=== PATIENT | female | born 1960 | race American Indian/Alaskan Native ===

== ENCOUNTER 2020-03-17 16:11 | Emergency (ER) | payer MEDICARE, MEDICAID ==
[~2020-03-17] VITALS: Ht 157.5 cm; Wt 70.0 kg
[~2020-03-17 16:11] MED LIST: TEG100T PO
[2020-03-17] MEDS ORDERED: BUSP5TAB3 PO (16:42)
[2020-03-17] MEDS ORDERED: FOLI1TAB24 PO (16:44)
[2020-03-17] MEDS ORDERED: DOCU100C33 PO (16:45)
[2020-03-17] MEDS ORDERED: VITA-347 PO (16:47)
[2020-03-17] MEDS ORDERED: LEVE500T PO (16:48)
[2020-03-17] MEDS ORDERED: PARO40TA PO (16:50)
--- NOTE | 2020-03-17 17:00 | NUR ---
Resting in bed
[2020-03-17 17:36] LABS: BASOPHILS % (AUTO) 0.4 % (0-1); EOSINOPHILS % (AUTO) 0.7 % (0-6); HEMATOCRIT 38.7 % (35.0-45.0); HEMOGLOBIN 13.3 g/dl (12.0-16.0); LYMPHOCYTES # (AUTO) 1.1 X10'3 (1.1-4.8); LYMPHOCYTES % (AUTO) 20.5 % (21-51); MEAN CORPUSCULAR HGB CONC 34.2 g/dL (33.0-36.5); MEAN CORPUSCULAR VOLUME 96.6 FL (78-98); MEAN PLATELET VOLUME 6.2 FL (7.4-10.4); MONOCYTES # (AUTO) 0.3 X10'3 (0-0.9); MONOCYTES % (AUTO) 5.7 % (2-12); NEUTROPHILS # (AUTO) 3.9 X10'3 (1.8-7.7); NEUTROPHILS % (AUTO) 72.7 % (42-75); PLATELET COUNT 265 X10'3 (140-440); RED BLOOD COUNT 4.01 X10'6 (4.20-5.60); RED CELL DISTRIBUTION WIDTH 12.3 % (11.5-14.5); WHITE BLOOD COUNT 5.4 X10'3 (4.5-11.0)
[2020-03-17 17:53] LABS: ALANINE AMINOTRANSFERASE 25 U/L (12-78); ALKALINE PHOSPHATASE 155 IU/L (46-116); ANION GAP 7 (8-16); ASPARTATE AMINO TRANSFERASE 23 U/L (10-37); BILIRUBIN,TOTAL 0.2 MG/DL (0.1-1.0); BLOOD UREA NITROGEN 7 MG/DL (7-18); BUN/CREATININE RATIO 11.5 (6.6-38.0); CALCIUM 8.4 MG/DL (8.5-10.1); CHLORIDE 95 MMOL/L (99-107); CREATININE 0.61 MG/DL (0.40-0.90); GLUCOSE 104 MG/DL (70-104); POTASSIUM 4.2 MMOL/L (3.5-5.1); SODIUM 131 MMOL/L (135-145); TOTAL CARBON DIOXIDE 28.9 MMOL/L (24-32); TOTAL PROTEIN 8.2 G/DL (6.4-8.2); eGFR > 90 ML/MIN
[2020-03-17 18:02] LABS: ETHANOL < 0.010 GM/DL (0.0-0.010)
--- NOTE | 2020-03-17 18:06 | NUR ---
Resting in bed
[2020-03-17 19:00] LABS: CARBAMAZEPINE (TEGRETOL) 9.7 UG/ML (4.0-12.0)
[2020-03-17] MEDS ORDERED: CARB200T2 PO (19:09)
[2020-03-17 19:50] LABS: CLARITY,URINE CLOUDY (Clear); COLOR,URINE YELLOW (Yellow); GLUCOSE, URINE NEGATIVE (Neg); KETONES,URINE NEGATIVE (Neg); LEUKOCYTE ESTERASE ,URINE MODERATE (Neg); NITRITES, URINE POSITIVE (Neg); OCCULT BLOOD,URINE MODERATE (Neg); PH,URINE 7.5 (4.8-8.0); PROTEIN,URINE NEGATIVE (Neg); UROBILINOGEN,URINE 0.2 E.U/dL (0.2-1.0)
[2020-03-17 19:51] LABS: URINE HCG NEGATIVE (NEG)
[2020-03-17 19:56] LABS: BACTERIA,URINE 4+ /HPF (Neg); RBC,URINE 0-2 /HPF (0-2); UA COLLECTION TYPE VOIDED
[2020-03-17 19:57] LABS: SQUAMOUS EPITHELIAL CELL,UR FEW /LPF (FEW)
[2020-03-17 20:03] LABS: URINE AMPHETAMINE SCREEN NEGATIVE (Neg); URINE BARBITUATE SCREEN NEGATIVE (Neg); URINE BENZODIAZEPINES SCREEN NEGATIVE (Neg); URINE CANNABINOID SCREEN NEGATIVE (Neg); URINE COCAINE SCREEN NEGATIVE (Neg); URINE METHADONE SCREEN NEGATIVE (Neg); URINE OPIATE SCREEN NEGATIVE (Neg); URINE PHENCYCLIDINE SCREEN NEGATIVE (Neg)
[2020-03-17] MEDS: levetiracetam 250mg tablet PO SCH (20:03)
[2020-03-17] MEDS: docusate sod 100mg capsule PO SCH (20:03)
[2020-03-17] MEDS: busPIRone 5mg tablet PO SCH (20:03)
[2020-03-17] MEDS: carBAMazepine Ext. Release 200 MG TAB.ER.12H PO SCH (20:11)
[2020-03-18] MEDS ORDERED: vitamin D (cholecalciferol) 1,000 unit tablet PO SCH (08:00)
[2020-03-18] MEDS ORDERED: beta-carotene(A) w/C & E + minerals tab PO SCH (08:00)
[2020-03-18] MEDS ORDERED: PARoxetine 20mg tablet PO SCH (08:00)
--- NOTE | 2020-03-18 08:02 | NUR ---
PT REQUESTING TO BE CONFIDENTIAL AND TO ONLY HAVE HER INFORMATION SHARED WITH HERMELINDO STINSON (FRIEND) AND SETH MICHELLE (BROTHER). PT DOES NOT WANT HER INFORMATION SHARED WITH STAFF OF RETIREMENT.
[2020-03-18] MEDS: carBAMazepine Ext. Release 200 MG TAB.ER.12H PO SCH (08:11)
[2020-03-18] MEDS: levetiracetam 250mg tablet PO SCH (08:11)
[2020-03-18] MEDS: busPIRone 5mg tablet PO SCH (08:12)
[2020-03-18] MEDS: docusate sod 100mg capsule PO SCH (08:12)
--- NOTE | 2020-03-18 10:48 | NUR ---
Patient on bed awake.We will monitor.
[2020-03-18] MEDS ORDERED: ALPR1TAB2 PO (14:08)
--- NOTE | 2020-03-18 14:17 | NUR ---
PT BEING D/C HOME [facility]. THEY REPORT THEIR SENIOR ENERGY TRADER ETA OF 1700.
[2020-03-18 17:25] VITALS: BP 137/94
--- NOTE | 2020-03-18 17:45 | NUR ---
DC INSTRUCTIONS GIVEN TO PATIENT AND PRISONSQUEEGEER AND FORMER, HERMELINDO. PATIENT IS STATING THAT SHE DOES NOT WANT TO GO BACK TO HER PRESENT PLACEMENT AND SHE WILL RUN AWAY. PATIENT REMINDED THAT SHE HAD AGREED WITH THE MENTAL HEALTH WORKER, TRISTON, THAT SHE WOULD BE STAYING AT PRESENT PLACEMENT UNTIL OTHER ARRANGEMENTS CAN BE MADE. PATIENT GOT DRESSED AND DEPARTED FROM UNIT, FOLLOWED BY OPTIMIZATION MANAGER. PATIENT IS IN STABLE CONDITION ON DEPARTURE FROM ER, ACCOMPANIED BY SECURITY.
== END 2020-03-18 17:58 | disposition home or self-care (01) ==
LOC: ER 16:11 → EEVIPCON 16:11 → ER 03-18 17:58
DX: R45.851 Suicidal ideations (principal); Z86.69 Personal history of other diseases of the nervous system and sense organs; Z88.0 Allergy status to penicillin; Z79.899 Other long term (current) drug therapy; Z88.8 Allergy status to other drugs, medicaments and biological substances
CPT/HCPCS: 36415; 80053; 80156; 80305; 80320; 81001; 81025; 84443; 85025; 99285

== ENCOUNTER 2020-03-22 04:48 | Emergency (ER) | payer MEDICARE, MEDICAID ==
[~2020-03-22] VITALS: Ht 157.5 cm; Wt 66.4 kg
[~2020-03-22 04:48] MED LIST changes: +ALPR1TAB2 PO; +BUSP5TAB3 PO; +CARB200T2 PO; +DOCU100C33 PO; +FOLI1TAB24 PO; +LEVE500T PO; +PARO40TA PO; -TEG100T PO; +VITA-347 PO
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
[2020-03-22 07:22] VITALS: BP 143/92
[2020-03-22] MEDS ORDERED: BUSP10TA3 PO (16:22)
[2020-03-22] MEDS ORDERED: CARB-52 PO (16:22)
== END 2020-03-22 07:28 | disposition home or self-care (01) ==
LOC: ER 04:48
DX: Z00.00 Encounter for general adult medical examination without abnormal findings (principal); F32.9 Major depressive disorder, single episode, unspecified; Z86.69 Personal history of other diseases of the nervous system and sense organs; Z90.710 Acquired absence of both cervix and uterus; Z98.890 Other specified postprocedural states; Z88.0 Allergy status to penicillin; Z88.8 Allergy status to other drugs, medicaments and biological substances; Z79.899 Other long term (current) drug therapy
CPT/HCPCS: 99284

== ENCOUNTER 2020-03-22 15:05 | Emergency (ER) | payer MEDICARE, MEDICAID ==
[~2020-03-22] VITALS: Ht 157.5 cm; Wt 70.0 kg
[2020-03-22 15:58] LABS: BASOPHILS % (AUTO) 0.3 % (0-1); EOSINOPHILS % (AUTO) 0.6 % (0-6); HEMATOCRIT 40.3 % (35.0-45.0); HEMOGLOBIN 13.9 g/dl (12.0-16.0); LYMPHOCYTES # (AUTO) 1.3 X10'3 (1.1-4.8); LYMPHOCYTES % (AUTO) 25.6 % (21-51); MEAN CORPUSCULAR HEMOGLOBIN 33.2 PG (27.0-31.0); MEAN CORPUSCULAR HGB CONC 34.5 g/dL (33.0-36.5); MEAN CORPUSCULAR VOLUME 96.2 FL (78-98); MEAN PLATELET VOLUME 6.4 FL (7.4-10.4); MONOCYTES # (AUTO) 0.5 X10'3 (0-0.9); MONOCYTES % (AUTO) 8.9 % (2-12); NEUTROPHILS # (AUTO) 3.3 X10'3 (1.8-7.7); NEUTROPHILS % (AUTO) 64.6 % (42-75); PLATELET COUNT 293 X10'3 (140-440); RED BLOOD COUNT 4.19 X10'6 (4.20-5.60); RED CELL DISTRIBUTION WIDTH 12.6 % (11.5-14.5); WHITE BLOOD COUNT 5.2 X10'3 (4.5-11.0)
[2020-03-22 16:08] LABS: ALANINE AMINOTRANSFERASE 26 U/L (12-78); ALBUMIN 4.2 G/DL (3.4-5.0); ALBUMIN/GLOBULIN RATIO 0.9 (1.1-1.5); ALKALINE PHOSPHATASE 161 IU/L (46-116); ANION GAP 5 (8-16); ASPARTATE AMINO TRANSFERASE 21 U/L (10-37); BILIRUBIN,TOTAL 0.3 MG/DL (0.1-1.0); BLOOD UREA NITROGEN 4 MG/DL (7-18); BUN/CREATININE RATIO 5.9 (6.6-38.0); CHLORIDE 98 MMOL/L (99-107); CREATININE 0.68 MG/DL (0.40-0.90); GLUCOSE 119 MG/DL (70-104); POTASSIUM 4.1 MMOL/L (3.5-5.1); SODIUM 135 MMOL/L (135-145); TOTAL CARBON DIOXIDE 32.1 MMOL/L (24-32); TOTAL PROTEIN 8.7 G/DL (6.4-8.2); eGFR 89 ML/MIN
[2020-03-22 16:21] LABS: ETHANOL < 0.010 GM/DL (0.0-0.010)
[2020-03-22] MEDS ORDERED: BUSP10TA3 PO (16:22)
[2020-03-22] MEDS ORDERED: CARB-52 PO (16:22)
--- NOTE | 2020-03-22 17:23 | NUR ---
pt ambulated to ER overflow bed 20 from main ER. calm and cooperative. apologizes for "coming here again". changed into scrubs. personal belongings inventoried. oriented to unit. urine sample obtained and sent. denies thoughts of hurting herself or others at this time.
[2020-03-22 17:36] LABS: CLARITY,URINE CLOUDY (Clear); COLOR,URINE YELLOW (Yellow); GLUCOSE, URINE NEGATIVE (Neg); KETONES,URINE NEGATIVE (Neg); LEUKOCYTE ESTERASE ,URINE MODERATE (Neg); NITRITES, URINE NEGATIVE (Neg); OCCULT BLOOD,URINE MODERATE (Neg); PROTEIN,URINE NEGATIVE (Neg); UROBILINOGEN,URINE 0.2 E.U/dL (0.2-1.0)
[2020-03-22 17:43] LABS: URINE HCG NEGATIVE (NEG)
[2020-03-22 17:48] LABS: URINE AMPHETAMINE SCREEN NEGATIVE (Neg); URINE BARBITUATE SCREEN NEGATIVE (Neg); URINE BENZODIAZEPINES SCREEN NEGATIVE (Neg); URINE CANNABINOID SCREEN NEGATIVE (Neg); URINE COCAINE SCREEN NEGATIVE (Neg); URINE METHADONE SCREEN NEGATIVE (Neg); URINE OPIATE SCREEN NEGATIVE (Neg); URINE PHENCYCLIDINE SCREEN NEGATIVE (Neg)
[2020-03-22 17:52] LABS: UA COLLECTION TYPE NON-SPECIFIED
[2020-03-22 17:56] LABS: BACTERIA,URINE 4+ /HPF (Neg); SQUAMOUS EPITHELIAL CELL,UR FEW /LPF (FEW); WBC CLUMPS,URINE FEW /HPF (NEGATIVE); WBC,URINE 30-50 /HPF (0-4)
--- NOTE | 2020-03-22 18:47 | NUR ---
PT PACKET FAXED TO [facility]
--- NOTE | 2020-03-22 19:00 | NUR ---
PT AWOKE AND SAT UP TO EAT DINNER . PLEASANT COROPORTATIVE POLITE .
--- NOTE | 2020-03-22 20:00 | NUR ---
PT SITTING UP IN BED , TALKING ABOUT SI THAT SHE HAD TODAY . STATES THAT SHE DOESNT WAN TO BE HERE AND SHE IS SORRY , BUT IT IS NOT OK FOR HER AT HER HOME . THAT SHE DOESNT GET ALONG WITH ALL THE PEOPLE WHERE SHE LIVES ADN SHE JUST CANT TAKE IT ANYMORE . PT SAYS SHE DOESNT WANT TO HURT SELF BUT DOESNT KNOW WHAT ELSE TO DO ABOUT NOT WANTING TO LIVE WHERE SHE IS AT . PT LOOKING AT THE GROUND WITH A MELONCOMY TONE
--- NOTE | 2020-03-22 21:00 | NUR ---
ENCOURAGED PT TO GET READY FOR BED . OFFERD PT A WARM BLANKET . PT GOT INTO BED AND SAID GOOD NIGHT AND THANK YOU
--- NOTE | 2020-03-22 22:04 | NUR ---
PT SLEEPING PEACFULLY RESP EVEN UNLABORED . PT IN THE DIRECT LINE OF SIGHT OF NURSING STAFF.
--- NOTE | 2020-03-22 22:04 | NUR ---
MED REC PRINTED FOR SIGNING
--- NOTE | 2020-03-22 23:02 | NUR ---
PT SLEEPING ON HER RIGHT SIDE . RESP EVEN AND UNLABORED . WILL CONTINUE TO MONITOR And REASSESS
--- NOTE | 2020-03-23 00:14 | NUR ---
PT SLEEPING ON HER RIGHT SIDE . RESP EVEN AND UNLABORED . WILL CONTINUE TO MONITOR And REASSESS
--- NOTE | 2020-03-23 00:51 | NUR ---
PT AWAKE ASKING QUESTIONS ABOUT [facility] DX AND HER CONCERNS SHE HAS ABOUT THE QUESTIONS SHE WAS ASKED IN REGARDS TO HER HAVIT "IT" PT GAVE THIS NUMBER [phone] JANETH RENE SHE STATED WILL NEED TO BE CALLED ABOUT HER CONCERNS AND HEALTH HX AND HER STUFFED PANDA . PT SAT UP IN BED AND COMBED HER HAIR . REMINDED PATIENT THAT IT WAS 01 AND THAT SHE NEEDED TO TRY AND GO BACK TO SLEEP .
--- NOTE | 2020-03-23 01:09 | NUR ---
PT APPEARS TO BE A LITTLE ANXIOUS BUSPAR ORDERED , PHARMACY TIMED FOR MEDS TO BEGAN IN AM . PHONED PHARMIST AND ASKED IF THE MEDICATION COULD BE TIMED SO THAT 03/22/20 DOSES COULD BE TAKEN PT WAS HAVING A HARD TIME SLEEPING . PHARMACY STATED [facility] TIMED THE MEDICATIONS THAT WAY AND IF THE PATIENT NEEDED HER BUSPAR NOW THAT IT WAS THE PROVIDERS WHO WOULD NEED TO TIME THE MEDICATION NOT PHARMACY . SPOKE WITH DR VALERO WHO ORDER 1 MG OF ATIVAN PO NOW X1 DOSE . PT VERBALIZED SHE WOULD LIKE TO TAKE THE ATIVAN AND SEE IF IT HELPS HER RELAX .
[2020-03-23] MEDS ORDERED: LORazepam 1 MG tablet PO ONE (01:10)
--- NOTE | 2020-03-23 02:00 | NUR ---
PT SLEEPING PEACFULLY SUPINE . RESP EVEN AND UNLABORED
--- NOTE | 2020-03-23 02:58 | NUR ---
PT MOVED BACK TO HER RIGHT SIDE SLEEPING RESP EVEN AND UNLABORED WILL CONTINUE TO MONITOR
--- NOTE | 2020-03-23 03:50 | NUR ---
PT SLEEPING PEACFULLY ON HER RIGHT SIDE RESP EVEN AND UNLABORED WILL CONTINUE TO MONITOR AND ASSESS
--- NOTE | 2020-03-23 05:41 | NUR ---
pt aursable with vs pleasant coroporates
[2020-03-23] MEDS: busPIRone 5mg tablet PO SCH ×3 (06:00→14:21)
--- NOTE | 2020-03-23 06:48 | NUR ---
Patient sleeping supine in bed. Respirations are even and unlabored.
[2020-03-23] MEDS ORDERED: docusate sod 100mg capsule PO SCH (08:00)
[2020-03-23] MEDS ORDERED: carBAMazepine Ext. Release 200 MG TAB.ER.12H PO SCH (08:00)
[2020-03-23] MEDS ORDERED: beta-carotene(A) w/C & E + minerals tab PO SCH (08:00)
[2020-03-23] MEDS ORDERED: levetiracetam 250mg tablet PO SCH (08:00)
[2020-03-23] MEDS ORDERED: vitamin D (cholecalciferol) 1,000 unit tablet PO SCH (08:00)
[2020-03-23] MEDS ORDERED: PARoxetine 20mg tablet PO SCH (08:00)
--- NOTE | 2020-03-23 08:48 | NUR ---
Patient up to void. Eating breakfast currently. Medication compliant. No needs at this time. Will continue to monitor.
--- NOTE | 2020-03-23 09:07 | NUR ---
Patient up to restroom.
--- NOTE | 2020-03-23 09:18 | NUR ---
Breaking primary RN, pt is sitting up in bed no distress observed will continue to monitor
--- NOTE | 2020-03-23 09:26 | NUR ---
Lab present to draw blood.
--- NOTE | 2020-03-23 11:26 | NUR ---
Melissa ortez in [facility] - 03/23/20 at 1129 by [email or web address] breaking primary RN, pt is sitting at side of bed, calm, awaiting taxi
--- NOTE | 2020-03-23 11:29 | NUR ---
breaking primary RN, pt is laying on her right side, awake and calm will comntinue to monitor
--- NOTE | 2020-03-23 12:56 | NUR ---
Pt. up to the bathroom. Called [facility] and they state they can pick patient up at 15:00.
[2020-03-23 14:54] VITALS: BP 125/66
--- NOTE | 2020-03-25 09:57 | NUR ---
pt. has no phone number listed. called contact (brother named amanda) the number listed is a fax # not a phone number. unable to leave a message. pt. needs to have bactrim ds 1 po bid x 7 days #14 called to a pharmacy.
== END 2020-03-23 15:01 | disposition home or self-care (01) ==
LOC: ER 15:05
DX: R62.50 Unspecified lack of expected normal physiological development in childhood (principal); R45.851 Suicidal ideations; F32.9 Major depressive disorder, single episode, unspecified; Z86.69 Personal history of other diseases of the nervous system and sense organs; Z90.710 Acquired absence of both cervix and uterus; Z98.890 Other specified postprocedural states; Z88.0 Allergy status to penicillin; Z88.8 Allergy status to other drugs, medicaments and biological substances; Z79.899 Other long term (current) drug therapy
CPT/HCPCS: 36415; 80053; 80156; 80177; 80305; 80320; 81001; 81025; 84443; 85025; 87077; 87088; 87186; 99285

== ENCOUNTER 2020-07-11 00:27 | Emergency (ER) | payer MEDICARE, MEDICAID ==
[~2020-07-11] VITALS: Ht 157.5 cm; Wt 69.0 kg
[~2020-07-11 00:27] MED LIST changes: -ALPR1TAB2 PO; +BUSP5TAB26 PO; -BUSP5TAB3 PO; +CARB-101 PO; -CARB200T2 PO; -FOLI1TAB24 PO; +ONDA4TAB12 PO; +RISP1TAB3 PO; +TRAZ-251 PO; -VITA-347 PO
--- NOTE | 2020-07-11 00:47 | NUR ---
PT REPORST SHE "DOES NOT WANT TO GO HOME ." SHE WOULD "LIKE TO STAY HERE. "pT REPORTS THAT" [facility] SAID THAT THIS PLACE WILL NOT LET ME SPEND THE NIGHT HERE EITHER " DR JACK IS AT THE BEDSIDE EVALAUTIONG PATIENT .
--- NOTE | 2020-07-11 01:30 | NUR ---
PT CAREGIVER [phone] AND [phone] HER ADDDRESS WAS REPORTED BEING [address] AT THE [facility].
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
--- NOTE | 2020-07-11 01:40 | NUR ---
PHONED [phone] AND THE CHICA ANSWERED THE PHONE AND STATED HE DOES NOT KNOW THE PATIENT . PT IS UNABLE TO GIVE AN ADDREESS TO TRANSPORT HER HOME TO HER ASSISTED LIVING FACILITY AND THE FACILITY AND OR ROUSTABOUT HEAD ARE NOT ANSWERING THE PHONE . PTATIENT WAS TAKEN OVER TO OVERFLOW TO BED 21 TO SLEEP TILL THE AM WHEN SHE PLANS TO GO TO THE [facility]. HI AMBULATED OVER TO OVER FLOW WITH JUAN COFFMAN WITH STEADY GAIT AND COROPORTATIVE CHARGE NURSE ALSO AWARE.
[2020-07-11] MEDS ORDERED: levetiracetam 250mg tablet PO ONE (02:15)
--- NOTE | 2020-07-11 04:21 | NUR ---
pt is sleeping, resp even and unlabored
[2020-07-11 05:50] VITALS: BP 119/52
--- NOTE | 2020-07-11 06:40 | NUR ---
Patient awake and sitting in bed. No distress observed. Continue to monitor.
--- NOTE | 2020-07-11 08:00 | NUR ---
Patient sitting up and eating. No distress observed. Continue to monitor.
== END 2020-07-11 08:42 | disposition home or self-care (01) ==
LOC: ER 00:28
DX: F25.9 Schizoaffective disorder, unspecified (principal); F32.9 Major depressive disorder, single episode, unspecified; Z90.710 Acquired absence of both cervix and uterus; Z88.0 Allergy status to penicillin; Z88.8 Allergy status to other drugs, medicaments and biological substances; Z79.899 Other long term (current) drug therapy
CPT/HCPCS: 99283

== ENCOUNTER 2020-07-11 22:14 | Emergency (ER) | payer MEDICARE, MEDICAID ==
[~2020-07-11] VITALS: Ht 162.6 cm; Wt 76.4 kg
[2020-07-11 22:15] VITALS: BP 126/69
--- NOTE | 2020-07-11 22:26 | NUR ---
PT PROVIDED BUSINESS CARD FOR TRANSPORT UPON [facility], FACILITY NUMBER [phone], (RETAIL WORKER, MICHAEL MONTEZ, CELL [phone]).
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
== END 2020-07-12 00:50 | disposition home or self-care (01) ==
LOC: ER 22:15
DX: M79.671 Pain in right foot (principal); F32.9 Major depressive disorder, single episode, unspecified; Z86.69 Personal history of other diseases of the nervous system and sense organs; Z90.710 Acquired absence of both cervix and uterus; Z98.890 Other specified postprocedural states; Z88.0 Allergy status to penicillin; Z88.8 Allergy status to other drugs, medicaments and biological substances; Z79.899 Other long term (current) drug therapy
CPT/HCPCS: 70450; 72125; 73130; 73630; 99285

== ENCOUNTER 2020-07-12 19:23 | Emergency (ER) | payer MEDICARE, MEDICAID ==
[~2020-07-12] VITALS: Ht 157.5 cm; Wt 77.3 kg
[2020-07-12] MEDS ORDERED: normal saline 1000ML IV soln IVB ONE (19:50)
[2020-07-12 19:55] LABS: BASOPHILS % (AUTO) 0.3 % (0-1); EOSINOPHILS # (AUTO) 0.1 X10'3 (0-0.9); HEMATOCRIT 32.1 % (35.0-45.0); HEMOGLOBIN 10.9 g/dl (12.0-16.0); LYMPHOCYTES # (AUTO) 1.3 X10'3 (1.1-4.8); MEAN CORPUSCULAR HEMOGLOBIN 33.5 PG (27.0-31.0); MEAN CORPUSCULAR HGB CONC 33.9 g/dL (33.0-36.5); MEAN CORPUSCULAR VOLUME 98.8 FL (78-98); MEAN PLATELET VOLUME 6.8 FL (7.4-10.4); MONOCYTES # (AUTO) 0.8 X10'3 (0-0.9); MONOCYTES % (AUTO) 12.8 % (2-12); NEUTROPHILS # (AUTO) 4.1 X10'3 (1.8-7.7); NEUTROPHILS % (AUTO) 64.9 % (42-75); PLATELET COUNT 197 X10'3 (140-440); RED BLOOD COUNT 3.25 X10'6 (4.20-5.60); RED CELL DISTRIBUTION WIDTH 13.2 % (11.5-14.5); WHITE BLOOD COUNT 6.4 X10'3 (4.5-11.0)
[2020-07-12 19:58] LABS: ALANINE AMINOTRANSFERASE 29 U/L (12-78); ALBUMIN 3.3 G/DL (3.4-5.0); ALBUMIN/GLOBULIN RATIO 0.8 (1.1-1.5); ALKALINE PHOSPHATASE 114 IU/L (46-116); ANION GAP 11 (8-16); ASPARTATE AMINO TRANSFERASE 30 U/L (10-37); BILIRUBIN,TOTAL 0.3 MG/DL (0.1-1.0); BLOOD UREA NITROGEN 13 MG/DL (7-18); CHLORIDE 101 MMOL/L (99-107); CREATININE 0.65 MG/DL (0.40-0.90); GLUCOSE 113 MG/DL (70-104); POTASSIUM 3.8 MMOL/L (3.5-5.1); SODIUM 136 MMOL/L (135-145); TOTAL CARBON DIOXIDE 24.1 MMOL/L (24-32); TOTAL PROTEIN 7.2 G/DL (6.4-8.2); eGFR > 90 ML/MIN
[2020-07-12] MEDS ORDERED: iohexol 350MG/ML 100ml bottle IV ONE (19:59)
[2020-07-12 20:05] LABS: TROPONIN I < 0.04 NG/ML (0.0-0.05)
[2020-07-12 20:40] VITALS: BP 89/54
--- NOTE | 2020-07-12 21:57 | NUR ---
PT PULLED OUT HER IV. PT UP AND WALKED TO THE BATHROOM WITH STEADY GAIT.
== END 2020-07-12 22:42 | disposition home or self-care (01) ==
LOC: ER 19:23
DX: S00.31XA Abrasion of nose, initial encounter (principal); R53.1 Weakness; F32.9 Major depressive disorder, single episode, unspecified; Z86.69 Personal history of other diseases of the nervous system and sense organs; Z98.890 Other specified postprocedural states; Z90.710 Acquired absence of both cervix and uterus; Z88.0 Allergy status to penicillin; Z88.8 Allergy status to other drugs, medicaments and biological substances; Z79.899 Other long term (current) drug therapy; X58.XXXA Exposure to other specified factors, initial encounter; Y93.9 Activity, unspecified; Y92.89 Other specified places as the place of occurrence of the external cause; Y99.8 Other external cause status
CPT/HCPCS: 36415; 71045; 71275; 74174; 80053; 83605; 83880; 84145; 84484; 85025; 93005; 96360; 99285; J7030; Q9967

== ENCOUNTER 2020-07-16 17:08 | Emergency (ER) | payer MEDICARE, MEDICAID ==
[~2020-07-16] VITALS: Ht 157.5 cm; Wt 88.0 kg
[2020-07-16 17:45] LABS: BASOPHILS % (AUTO) 0.4 % (0-1); EOSINOPHILS # (AUTO) 0.1 X10'3 (0-0.9); EOSINOPHILS % (AUTO) 1.9 % (0-6); HEMATOCRIT 33.6 % (35.0-45.0); HEMOGLOBIN 11.5 g/dl (12.0-16.0); LYMPHOCYTES # (AUTO) 1.2 X10'3 (1.1-4.8); LYMPHOCYTES % (AUTO) 23.2 % (21-51); MEAN CORPUSCULAR HGB CONC 34.1 g/dL (33.0-36.5); MEAN CORPUSCULAR VOLUME 99.5 FL (78-98); MEAN PLATELET VOLUME 6.8 FL (7.4-10.4); MONOCYTES # (AUTO) 0.4 X10'3 (0-0.9); MONOCYTES % (AUTO) 8.3 % (2-12); NEUTROPHILS # (AUTO) 3.3 X10'3 (1.8-7.7); NEUTROPHILS % (AUTO) 66.2 % (42-75); PLATELET COUNT 242 X10'3 (140-440); RED BLOOD COUNT 3.38 X10'6 (4.20-5.60); RED CELL DISTRIBUTION WIDTH 13.4 % (11.5-14.5)
[2020-07-16 18:01] LABS: ALANINE AMINOTRANSFERASE 25 U/L (12-78); ALBUMIN 3.4 G/DL (3.4-5.0); ALBUMIN/GLOBULIN RATIO 0.8 (1.1-1.5); ALKALINE PHOSPHATASE 120 IU/L (46-116); ANION GAP 10 (8-16); ASPARTATE AMINO TRANSFERASE 19 U/L (10-37); BILIRUBIN,TOTAL 0.2 MG/DL (0.1-1.0); BLOOD UREA NITROGEN 8 MG/DL (7-18); BUN/CREATININE RATIO 10.8 (6.6-38.0); CALCIUM 8.4 MG/DL (8.5-10.1); CHLORIDE 102 MMOL/L (99-107); CREATININE 0.74 MG/DL (0.40-0.90); ETHANOL < 0.010 GM/DL (0.0-0.010); GLUCOSE 152 MG/DL (70-104); POTASSIUM 3.9 MMOL/L (3.5-5.1); SODIUM 137 MMOL/L (135-145); TOTAL PROTEIN 7.6 G/DL (6.4-8.2); eGFR 81 ML/MIN
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
[2020-07-16 18:47] VITALS: BP 123/74
== END 2020-07-16 18:42 | disposition home or self-care (01) ==
LOC: ER 17:08
DX: S00.31XA Abrasion of nose, initial encounter (principal); R56.9 Unspecified convulsions; M54.2 Cervicalgia; R53.1 Weakness; F32.9 Major depressive disorder, single episode, unspecified; Z90.710 Acquired absence of both cervix and uterus; Z13.89 Encounter for screening for other disorder; Z98.890 Other specified postprocedural states; Z88.0 Allergy status to penicillin; Z88.8 Allergy status to other drugs, medicaments and biological substances; Z79.899 Other long term (current) drug therapy; W19.XXXA Unspecified fall, initial encounter; Y93.89 Activity, other specified; Y92.89 Other specified places as the place of occurrence of the external cause; Y99.8 Other external cause status
CPT/HCPCS: 36415; 71045; 80053; 80320; 82948; 85025; 93005; 99285

== ENCOUNTER 2020-07-30 12:14 | Emergency (ER) | payer MEDICARE, MEDICAID ==
[~2020-07-30] VITALS: Ht 162.6 cm; Wt 113.6 kg
[~2020-07-30 12:14] MED LIST changes: -RISP1TAB3 PO; +RISP1TAB98 PO
[2020-07-30 12:40] VITALS: BP 121/82
== END 2020-07-30 12:52 | disposition home or self-care (01) ==
LOC: ER 12:14
DX: U07.1 COVID-19 (principal); F32.9 Major depressive disorder, single episode, unspecified; Z98.890 Other specified postprocedural states; Z88.0 Allergy status to penicillin; Z88.8 Allergy status to other drugs, medicaments and biological substances; Z79.899 Other long term (current) drug therapy
CPT/HCPCS: 99283

== ENCOUNTER 2020-08-03 17:14 | Emergency (ER) | payer MEDICARE, MEDICAID ==
[~2020-08-03] VITALS: Ht 165.1 cm; Wt 73.7 kg
--- NOTE | 2020-08-03 18:30 | NUR ---
The patient to bed #20. She has been to this ER numerous times with the most recent visit was 4 days ago. She is a [facility] client. She has a history of Schizoaffective disorder. She is making vague suicidal statements. She was seen by the ER MD and placed on a 1799. Lab is currently at the bedside drawing her labs.
[2020-08-03 18:48] LABS: URINE AMPHETAMINE SCREEN NEGATIVE (Neg); URINE BARBITUATE SCREEN NEGATIVE (Neg); URINE BENZODIAZEPINES SCREEN NEGATIVE (Neg); URINE CANNABINOID SCREEN NEGATIVE (Neg); URINE COCAINE SCREEN NEGATIVE (Neg); URINE METHADONE SCREEN NEGATIVE (Neg); URINE OPIATE SCREEN NEGATIVE (Neg); URINE PHENCYCLIDINE SCREEN NEGATIVE (Neg)
[2020-08-03 19:06] LABS: BASOPHILS % (AUTO) 0.3 % (0-1); EOSINOPHILS % (AUTO) 0.5 % (0-6); HEMATOCRIT 34.4 % (35.0-45.0); HEMOGLOBIN 11.7 g/dl (12.0-16.0); LYMPHOCYTES # (AUTO) 1.3 X10'3 (1.1-4.8); LYMPHOCYTES % (AUTO) 23.9 % (21-51); MEAN CORPUSCULAR HEMOGLOBIN 33.2 PG (27.0-31.0); MEAN CORPUSCULAR VOLUME 97.4 FL (78-98); MEAN PLATELET VOLUME 6.5 FL (7.4-10.4); MONOCYTES # (AUTO) 0.6 X10'3 (0-0.9); MONOCYTES % (AUTO) 11.8 % (2-12); NEUTROPHILS # (AUTO) 3.3 X10'3 (1.8-7.7); NEUTROPHILS % (AUTO) 63.5 % (42-75); PLATELET COUNT 242 X10'3 (140-440); RED BLOOD COUNT 3.54 X10'6 (4.20-5.60); RED CELL DISTRIBUTION WIDTH 13.2 % (11.5-14.5); WHITE BLOOD COUNT 5.3 X10'3 (4.5-11.0)
--- NOTE | 2020-08-03 19:13 | NUR ---
The patient is placed at [facility]. The house number is [phone].
[2020-08-03 19:14] LABS: ALANINE AMINOTRANSFERASE 28 U/L (12-78); ALBUMIN 3.6 G/DL (3.4-5.0); ALBUMIN/GLOBULIN RATIO 0.9 (1.1-1.5); ALKALINE PHOSPHATASE 139 IU/L (46-116); ANION GAP 12 (8-16); ASPARTATE AMINO TRANSFERASE 22 U/L (10-37); BILIRUBIN,TOTAL 0.2 MG/DL (0.1-1.0); BLOOD UREA NITROGEN 9 MG/DL (7-18); BUN/CREATININE RATIO 12.2 (6.6-38.0); CALCIUM 8.1 MG/DL (8.5-10.1); CHLORIDE 100 MMOL/L (99-107); CREATININE 0.74 MG/DL (0.40-0.90); ETHANOL < 0.010 GM/DL (0.0-0.010); GLUCOSE 120 MG/DL (70-104); SODIUM 135 MMOL/L (135-145); TOTAL CARBON DIOXIDE 23.5 MMOL/L (24-32); TOTAL PROTEIN 7.7 G/DL (6.4-8.2); eGFR 81 ML/MIN
--- NOTE | 2020-08-03 19:33 | NUR ---
packet sent to [facility]
[2020-08-03] MEDS ORDERED: RISP3TAB11 PO (20:22)
[2020-08-03] MEDS ORDERED: DOCU-148 PO (20:22)
[2020-08-03] MEDS ORDERED: LISI-600 PO (20:22)
[2020-08-03] MEDS ORDERED: LEVE500T PO (20:30)
[2020-08-03] MEDS ORDERED: PARO40TA PO (20:30)
[2020-08-03] MEDS ORDERED: BUSP10TA11 PO (20:30)
[2020-08-03] MEDS ORDERED: CARB-52 PO (20:30)
[2020-08-03] MEDS ORDERED: CARB400T5 PO (20:30)
[2020-08-03] MEDS ORDERED: TRAZ-251 PO (20:30)
--- NOTE | 2020-08-03 20:37 | NUR ---
Contacted patient's care provider who provided current list of medications. Med Rec completed.
[2020-08-03] MEDS ORDERED: busPIRone 5mg tablet PO SCH (21:00)
[2020-08-03] MEDS ORDERED: carBAMazepine Ext. Release 200 MG TAB.ER.12H PO SCH ×2 (21:00)
[2020-08-03] MEDS ORDERED: risperiDONE 2mg tablet PO SCH (21:00)
[2020-08-03] MEDS ORDERED: risperiDONE 0.5mg tablet PO SCH (21:00)
[2020-08-03] MEDS ORDERED: traZODone 50mg tablet PO SCH (21:00)
[2020-08-03] MEDS ORDERED: levetiracetam 250mg tablet PO SCH (21:00)
[2020-08-03] MEDS ORDERED: busPIRone 15mg tablet PO SCH (21:00)
--- NOTE | 2020-08-03 21:38 | NUR ---
[facility] is here to assess the patient
[2020-08-03 23:33] VITALS: BP 102/62
[2020-08-04] MEDS ORDERED: PARoxetine 20mg tablet PO SCH (08:00)
[2020-08-04] MEDS ORDERED: docusate sod 100mg capsule PO SCH (08:00)
[2020-08-04] MEDS ORDERED: carBAMazepine Ext. Release 200 MG TAB.ER.12H PO SCH (08:00)
[2020-08-04] MEDS ORDERED: lisinopril 10 MG tablet PO SCH (08:00)
== END 2020-08-03 23:38 | disposition home or self-care (01) ==
LOC: ER 17:15
DX: R45.851 Suicidal ideations (principal); F32.9 Major depressive disorder, single episode, unspecified; Z98.891 History of uterine scar from previous surgery; Z90.710 Acquired absence of both cervix and uterus; Z88.0 Allergy status to penicillin; Z88.8 Allergy status to other drugs, medicaments and biological substances; Z79.899 Other long term (current) drug therapy
CPT/HCPCS: 36415; 80053; 80305; 80320; 85025; 99284; 99285

== ENCOUNTER 2020-08-18 02:11 | Emergency (ER) | payer MEDICARE, MEDICAID ==
[~2020-08-18] VITALS: Ht 157.5 cm; Wt 77.6 kg
[~2020-08-18 02:11] MED LIST changes: +BUSP10TA11 PO; -BUSP5TAB26 PO; -CARB-101 PO; +CARB-52 PO; +CARB400T5 PO; +DOCU-148 PO; -DOCU100C33 PO; +LISI-600 PO; -ONDA4TAB12 PO; -RISP1TAB98 PO; +RISP3TAB11 PO
[2020-08-18 02:14] VITALS: BP 132/68
--- NOTE | 2020-08-18 02:28 | NUR ---
PT CURRENTLY RESIDES AT [facility] IN HOUSE 1. HOUSE # IS [id number]*
--- NOTE | 2020-08-18 02:29 | NUR ---
[place] NUMBER IS [phone]
--- NOTE | 2020-08-18 02:48 | NUR ---
Pt up to br to void. Voiding 950 cc's yellow clear urine in hat. Urine collected and sent to lab. Ambulating with steady gait.
--- NOTE | 2020-08-18 02:59 | NUR ---
SPOKE WITH NAYLA FROM [email or web address] [facility]. 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 ALSO STATED THAT THE FACILITY MANAGES THE PT MEDICATIONS AND THEY DO NOT NEED ANY RX AT THIS TIME. PENELOPE MARTINEZ MADE AWARE.
[2020-08-18] MEDS ORDERED: LEVE250T4 PO (03:10)
[2020-08-18] MEDS ORDERED: DOCU-170 PO (03:10)
[2020-08-18] MEDS ORDERED: CARB200T PO (03:10)
== END 2020-08-18 04:15 | disposition home or self-care (01) ==
LOC: ER 02:12
DX: R56.9 Unspecified convulsions (principal); Z76.0 Encounter for issue of repeat prescription; F32.9 Major depressive disorder, single episode, unspecified; Z98.890 Other specified postprocedural states; Z90.710 Acquired absence of both cervix and uterus; Z88.0 Allergy status to penicillin; Z88.8 Allergy status to other drugs, medicaments and biological substances; Z79.899 Other long term (current) drug therapy
CPT/HCPCS: 99284

== ENCOUNTER 2020-08-19 14:34 | Emergency (ER) | payer MEDICARE, MEDICAID ==
[~2020-08-19] VITALS: Ht 160 cm; Wt 77.3 kg
[~2020-08-19 14:34] MED LIST changes: +CARB200T PO; +DOCU-170 PO; +LEVE250T4 PO
[2020-08-19 15:02] VITALS: BP 110/81
== END 2020-08-19 15:30 | disposition home or self-care (01) ==
LOC: ER 14:34
DX: F41.9 Anxiety disorder, unspecified (principal); Z02.89 Encounter for other administrative examinations; F32.9 Major depressive disorder, single episode, unspecified; Z90.710 Acquired absence of both cervix and uterus; Z98.891 History of uterine scar from previous surgery; Z59.0 Homelessness; Z88.0 Allergy status to penicillin; Z88.8 Allergy status to other drugs, medicaments and biological substances; Z79.899 Other long term (current) drug therapy
CPT/HCPCS: 99284

== ENCOUNTER 2020-08-19 16:34 | Emergency (ER) | payer MEDICARE, MEDICAID ==
[~2020-08-19] VITALS: Ht 167.6 cm; Wt 75.0 kg
[2020-08-19 16:49] VITALS: BP 101/64
--- NOTE | 2020-08-19 19:22 | NUR ---
Pt is a developmentaly delayed and a client of [facility] assisted living. Pt is independant and not conserved. Pt information updated to include office number for [facility] to contact if needed. Pt has refused to sign paperwork stating that no services were provided and she wanted to be admitted. Physician evaluated patient and determined that her condition was non emergent and was given instructions to follow up with provider or to Call [facility] and was given a contact phone number. A representitive from [place] was called and is coming to transport patient home.
--- NOTE | 2020-08-19 19:35 | NUR ---
Pt resides at [address] [place] [address]
== END 2020-08-19 19:35 | disposition home or self-care (01) ==
LOC: ER 16:35
DX: Z02.89 Encounter for other administrative examinations (principal); G40.909 Epilepsy, unspecified, not intractable, without status epilepticus; Z59.0 Homelessness; Z90.710 Acquired absence of both cervix and uterus; Z98.891 History of uterine scar from previous surgery; Z88.0 Allergy status to penicillin; Z88.8 Allergy status to other drugs, medicaments and biological substances; Z79.899 Other long term (current) drug therapy
CPT/HCPCS: 99281; 99283

== ENCOUNTER 2020-08-28 11:11 | Emergency (ER) | payer MEDICARE, MEDICAID ==
[~2020-08-28] VITALS: Ht 167.6 cm; Wt 75.0 kg
--- NOTE | 2020-08-28 11:42 | NUR ---
pt in no distress. c-collar on. going to CT
--- NOTE | 2020-08-28 12:19 | NUR ---
pt in no distress. breathing well.
--- NOTE | 2020-08-28 12:20 | NUR ---
MD Torres took pt's c-collar off.
--- NOTE | 2020-08-28 12:20 | NUR ---
pt not a trauma level anymore.
[2020-08-28] MEDS ORDERED: ibuprofen tablet 400 MG TABLET PO ONE (12:25)
[2020-08-28 12:40] VITALS: BP 126/76
== END 2020-08-28 13:15 | disposition home or self-care (01) ==
LOC: ER 11:12
DX: S16.1XXA Strain of muscle, fascia and tendon at neck level, initial encounter (principal); S80.12XA Contusion of left lower leg, initial encounter; S09.90XA Unspecified injury of head, initial encounter; Z98.891 History of uterine scar from previous surgery; Z90.710 Acquired absence of both cervix and uterus; Z86.61 Personal history of infections of the central nervous system; Z59.0 Homelessness; Z88.0 Allergy status to penicillin; Z88.8 Allergy status to other drugs, medicaments and biological substances; Z79.899 Other long term (current) drug therapy; W01.0XXA Fall on same level from slipping, tripping and stumbling without subsequent striking against object, initial encounter; Y93.89 Activity, other specified; Y92.239 Unspecified place in hospital as the place of occurrence of the external cause; Y99.8 Other external cause status
CPT/HCPCS: 70450; 72125; 73590; 99285

== ENCOUNTER 2022-01-05 14:02 | Emergency (ER) | payer MEDICARE, MEDICAID ==
[~2022-01-05] VITALS: Ht 157.5 cm; Wt 72.7 kg
[~2022-01-05 14:02] MED LIST changes: -LISI-600 PO; +LISI20TA28 PO
[2022-01-05] MEDS ORDERED: acetaminophen 325mg tablet PO ONE (14:45)
[2022-01-05 15:04] VITALS: BP 157/91
== END 2022-01-05 15:06 | disposition home or self-care (01) ==
LOC: ER 14:03
DX: R52 Pain, unspecified (principal); F41.9 Anxiety disorder, unspecified; F32.A Depression, unspecified; Z86.69 Personal history of other diseases of the nervous system and sense organs; Z90.710 Acquired absence of both cervix and uterus; Z98.890 Other specified postprocedural states; Z59.00 Homelessness unspecified; Z88.0 Allergy status to penicillin; Z88.8 Allergy status to other drugs, medicaments and biological substances; Z79.899 Other long term (current) drug therapy
CPT/HCPCS: 99283

== ENCOUNTER 2023-05-21 18:00 | Emergency (ER) | payer MEDICARE, MEDICAID ==
[~2023-05-21] VITALS: Ht 157.5 cm; Wt 88.0 kg
[2023-05-21 18:11] VITALS: BP 116/87; PULSE 84; TEMP 98.8; O2SAT 95
[2023-05-21 18:55] VITALS: RESP 18
[2023-05-21 19:08] LABS: BILIRUBIN,URINE NEGATIVE (Neg); CLARITY,URINE CLOUDY (Clear); COLOR,URINE YELLOW (Yellow); GLUCOSE, URINE NEGATIVE (Neg); KETONES,URINE NEGATIVE (Neg); LEUKOCYTE ESTERASE ,URINE MODERATE (Neg); NITRITES, URINE POSITIVE (Neg); OCCULT BLOOD,URINE TRACE-INTACT (Neg); PROTEIN,URINE NEGATIVE (Neg)
[2023-05-21 19:21] LABS: UA COLLECTION TYPE CLN CATCH MIDSTREAM
[2023-05-21 19:24] LABS: BACTERIA,URINE 4+ /HPF (Neg); MUCUS STRANDS MODERATE /LPF (Neg); SQUAMOUS EPITHELIAL CELL,UR MODERATE /LPF (FEW); WBC,URINE TNTC /HPF (0-4)
[2023-05-21 19:25] LABS: TRANSITIONAL EPI CELLS,URINE FEW /HPF; WBC CLUMPS,URINE FEW /HPF (NEGATIVE)
[2023-05-21 20:23] LABS: BASOPHILS % (AUTO) 0.4 % (0-1); EOSINOPHILS # (AUTO) 0.2 X10'3 (0-0.9); EOSINOPHILS % (AUTO) 1.8 % (0-6); HEMATOCRIT 41.1 % (35.0-45.0); HEMOGLOBIN 13.8 g/dl (12.0-16.0); LYMPHOCYTES # (AUTO) 2.8 X10'3 (1.1-4.8); LYMPHOCYTES % (AUTO) 26.8 % (21-51); MEAN CORPUSCULAR HEMOGLOBIN 32.2 PG (27.0-31.0); MEAN CORPUSCULAR HGB CONC 33.5 g/dL (33.0-36.5); MEAN CORPUSCULAR VOLUME 96.2 FL (78-98); MEAN PLATELET VOLUME 7.4 FL (7.4-10.4); MONOCYTES # (AUTO) 0.8 X10'3 (0-0.9); MONOCYTES % (AUTO) 7.9 % (2-12); NEUTROPHILS # (AUTO) 6.7 X10'3 (1.8-7.7); NEUTROPHILS % (AUTO) 63.1 % (42-75); PLATELET COUNT 245 X10'3 (140-440); RED BLOOD COUNT 4.28 X10'6 (4.20-5.60); RED CELL DISTRIBUTION WIDTH 13.2 % (11.5-14.5); WHITE BLOOD COUNT 10.6 X10'3 (4.5-11.0)
[2023-05-21 20:37] LABS: ALANINE AMINOTRANSFERASE 26 U/L (12-78); ALBUMIN 3.5 G/DL (3.4-5.0); ALBUMIN/GLOBULIN RATIO 0.7 (1.1-1.5); ALKALINE PHOSPHATASE 99 IU/L (46-116); ANION GAP 9 (8-16); ASPARTATE AMINO TRANSFERASE 26 U/L (10-37); BILIRUBIN,TOTAL 0.3 MG/DL (0.1-1.0); BLOOD UREA NITROGEN 13 MG/DL (7-18); BUN/CREATININE RATIO 14.9 (10.0-20.0); CALCIUM 8.7 MG/DL (8.5-10.1); CHLORIDE 103 MMOL/L (99-107); CREATININE 0.87 MG/DL (0.40-0.90); GLUCOSE 90 MG/DL (70-104); LIPASE 121 U/L (73-393); POTASSIUM 3.9 MMOL/L (3.5-5.1); SODIUM 138 MMOL/L (135-145); TOTAL CARBON DIOXIDE 26.4 MMOL/L (24-32); TOTAL PROTEIN 8.3 G/DL (6.4-8.2); eCRCL 54 ML/MIN; eGFR 66 ML/MIN
[2023-05-21] MEDS ORDERED: CefTRIAXone/D5W-Rocephin 1gm 50 ML IV ONE (22:25)
[2023-05-21] MEDS ORDERED: CEFD300C21 PO ×3 (22:30→23:02)
== END 2023-05-21 23:05 | disposition home or self-care (01) ==
LOC: ER 18:02
DX: N39.0 Urinary tract infection, site not specified (principal); Z88.0 Allergy status to penicillin; Z88.8 Allergy status to other drugs, medicaments and biological substances; Z79.899 Other long term (current) drug therapy
CPT/HCPCS: 36415; 80053; 81001; 83690; 85025; 87077; 87088; 87186; 96365; 99284; J0696

== ENCOUNTER 2025-06-27 11:52 | Emergency (ER) | payer MEDICARE, MEDICAID ==
[~2025-06-27] VITALS: Ht 157.5 cm; Wt 88.5 kg
[~2025-06-27 11:52] MED LIST changes: +CEFD300C21 PO
[2025-06-27 11:56] VITALS: TEMP 97.8
[2025-06-27 12:54] LABS: MEAN PLATELET VOLUME 7.4 FL (7.4-10.4); RED CELL DISTRIBUTION WIDTH 12.9 % (11.5-14.5)
[2025-06-27 13:14] LABS: CREATININE 0.77 MG/DL (0.40-0.90); TOTAL CARBON DIOXIDE 30.6 MMOL/L (24-32); eCRCL 60 ML/MIN; eGFR 76 ML/MIN
--- NOTE | 2025-06-27 14:30 | Physician Documentation ---
History of Present Illness ~ Chief Complaint: Abdominal Pain Stated Complaint: ABDOMINAL PAIN Time Seen by MD: 13:41 Primary Medical Doctor: Mónica Cedeño Source: patient (10), other (Caregiver) Mode of Arrival: POV HPI Patient was brought in because she had diarrhea twice this morning. This occurred last at 8:00 a.m., with no further stool output. She has had no vomiting, no fever, no cough or URI symptoms, some complaints of diffuse abdominal pain that is difficult to pin down. She has a history of both a hiatal hernia and a ventral hernia, and was felt to have a new bulge, around her prior midline incision scar. Patient herself states that her abdomen hurts, but can not tell me where. She has no other complaints at this time. Medication Reconciliation Allergies: Coded Allergies: Penicillins (Unverified Allergy, Mild, 06/27/25) Phenytoin Sodium Extended (Unverified Allergy, Mild, 06/27/25) phenobarbital (Unverified Allergy, Mild, 06/27/25) phenytoin sodium (Unverified Allergy, Mild, 06/27/25) Scheduled Buspirone Hcl* (Buspar*), 2 TAB PO TID, (Reported) Carbamazepine (Carbamazepine Xr), 1 TAB PO DAILY, (Reported) Carbamazepine (Carbamazepine Xr), 1 TAB PO HS, (Reported) Carbamazepine (Tegretol), 1 TAB PO ONCE Cefdinir (Cefdinir), 1 CAP PO Q12H Cephalexin*Monohydrate* (Keflex*), 1 CAP PO Q8H Docusate Sodium (Colace), 1 CAP PO DAILY, (Reported) Docusate Sodium (Dulcolax Stool Softener), 1 CAP PO ONCE Levetiracetam (Levetiracetam), 1 TAB PO Q12H, (Reported) Levetiracetam (Keppra), 1 TAB PO ONCE Lisinopril (Lisinopril), 10 MG PO DAILY, (Reported) Paroxetine Mesylate (Pexeva), 1 TAB PO DAILY, (Reported) Risperidone (Risperdal), 3 MG PO BID, (Reported) Trazodone HCl (Trazodone HCl), 1 TAB PO HS, (Reported) Past Medical History Past Medical History: *USER EXPERIENCE TEAM LEAD* (Developmental delay), Seizures, Hypertension, *GI/HEPATOBILIARY* (Hiatal hernia, ventral hernia), Hernia, UTI, *PSYCH*, Anxiety, Depression, Schizophrenia (Schizoaffective/bipolar) Past Surgical History: , hysterectomy Smoking Status: Never smoker Alcohol Use: None Drug Use: none Lives In: Homeless Review of Systems All Other Systems at this time: Reviewed and Negative Physical Exam Vital Signs: Temperature: 97.8, Heart Rate: 69, Respiratory Rate: 14, BP: 106/64, Pulse Oximetry: 98, Weight: 88.500 Oxygen Flow Rate: 0 Physical Exam General: Pt is awake, alert, oriented x4 in no acute distress and well appearing. Head: Normocephalic and atraumatic. Eyes: Conjunctiva normal. ENT: Mucous membranes moist. Neck: Supple. Chest: Clear to auscultation bilaterally, without rales, rhonchi, or wheezes. There is no accessory muscle use or retractions. Cardiac: Regular rate and rhythm without murmurs, gallops or rubs. Palpation of the chest wall is normal. Abd: Soft, nondistended, with normoactive bowel sounds. No guarding or rebound. Initially she seems to have tenderness to very superficial palpation in all four quadrants, but this is variable. At this time she does not appear to have any significant tenderness in any of the quadrants. She has an easily reducible ventral hernia just to the left of her midline incision, and I do not appreciate any other hernias. Extremities: Within normal limits without cyanosis, clubbing, or edema. Skin: [place], warm and dry with no significant rash appreciated. Neuro: Cranial nerves II-XII grossly intact. The gait is normal. Progress Results/Orders Results/Orders Orders - JOSE FU MD Straight Cath For Urine Sample (06/27/25 14:30) Need Urine Collection (06/27/25 14:30) Cult Urine + [address] [place] [address] (06/27/25 15:23) Completed Orders - JOSE FU MD Hcg, Ur Ql (06/27/25 12:01) Cbc/Diff (06/27/25 12:01) BMP (06/27/25 12:01) Lipase (06/27/25 12:01) CMP (06/27/25 12:01) Ua W/Microscopic, Cult If Ind (06/27/25 14:53) Sulfamethox/Trimetho. Ds Tab (Septra Ds (06/27/25 15:35) Cephalexin Capsule (Keflex Capsule) (06/27/25 15:50) Medications Received in ER Medications (Trade) Dose Ordered Sig/Arnulfo Route PRN Reason Start Time Stop Time Status Last Admin Dose Admin (Keflex capsule) 500 mg ONCE ONCE PO 06/27/25 15:50 06/27/25 15:51 DC 06/27/25 15:58 500 MG Vital Signs 06/27/25 06/27/25 06/27/25 06/27/25 11:56 13:48 13:52 15:04 Temp 97.8 Pulse 82 69 64 Resp 16 16 14 12 B/P (MAP) 104/75 106/64 (78) 102/72 (82) Pulse Ox 98 98 98 O2 Flow Rate 0 0 0 06/27/25 16:05 Pulse 72 Resp 16 B/P (MAP) 113/66 Pulse Ox 100 Laboratory Tests Test 06/27/25 12:37 06/27/25 14:53 White Blood Count 7.8 Red Blood Count 4.27 Hemoglobin 14.0 Hematocrit 41.2 Mean Corpuscular Volume 96.4 Mean Corpuscular Hemoglobin 32.7 H Mean Corpuscular Hemoglobin Concent 33.9 Red Cell Distribution Width 12.9 Platelet Count 220 Mean Platelet Volume 7.4 Neutrophils (%) (Auto) 63.9 Lymphocytes (%) (Auto) 26.6 Monocytes (%) (Auto) 7.2 Eosinophils (%) (Auto) 1.7 Basophils (%) (Auto) 0.6 Neutrophils # (Auto) 5.0 Lymphocytes # (Auto) 2.1 Monocytes # (Auto) 0.6 Eosinophils # (Auto) 0.1 Basophils # (Auto) 0.0 CBC Comment Sodium Level 141 Potassium Level 4.2 Chloride Level 105 Carbon Dioxide Level 30.6 Anion Gap 5 L Blood Urea Nitrogen 7 Creatinine 0.77 Estimated GFR/1.73 m2 76 BUN/Creatinine Ratio 9.1 L Glucose Level 109 H Calcium Level 8.6 Total Bilirubin 0.2 Aspartate Amino Transf (AST/SGOT) 46 H Alanine Aminotransferase (ALT/SGPT) 45 Alkaline Phosphatase 94 Total Protein 8.4 H Albumin 3.5 Globulin 4.9 H Albumin/Globulin Ratio 0.7 L Lipase 44 Chemistry Comments Urine Specimen Description Straight cath Urine Color Yellow Urine Clarity Clear Urine pH 6.0 Urine Specific [place] <=1.005 Urine Protein Negative Urine Glucose (UA) Negative Urine Ketones Negative Urine Occult Blood Negative Urine Nitrite Positive H Urine Bilirubin Negative Urine Urobilinogen 0.2 Urine Leukocyte Esterase Negative Urine RBC 0-2 Urine WBC 5-10 H Urine Squamous Epithelial Cells Few Urine Bacteria 4+ Urine Culture Indicated Indicated Volume Urine Centrifuged 10 ml Urine HCG, Qualitative Negative Urine Comment Medical Decision Making Additional Comments Patient presenting with diffuse nonspecific abdominal pain and two episodes of diarrhea, well-appearing, no evidence for sepsis, benign examination to the abdomen, and no further episodes of diarrhea. Laboratory workup reveals as patient has a urinary tract infection. Given her developmental delay I elected to treat her orally only and defer peripheral IV as there is no evidence for sepsis or pyelonephritis. Patient will be treated as an outpatient, follow up with PMD, caregiver understands patient to return to the emergency department if fever, vomiting, worsening diarrhea, bloody stools, or other concerns. Departure Time of Disposition: 15:38 Disposition: HOME / SELF CARE / HOMELESS Impression: Primary Impression: Acute urinary tract infection Additional Impression: Diarrhea Qualified Codes: R19.7 - Diarrhea, unspecified Condition: Stable Discharge Instructions: Urinary Tract Infection, Adult Additional Instructions: Stay well hydrated. restaurant supervisor the antibiotics and take them until finished. Please follow-up closely with your doctor this week for urine culture results and recheck. Return to the emergency department if fever, vomiting, bloody stools, increasing abdominal pain, behavior changes, or any other concerns. Referrals: NO PRIMARY CARE PROVIDER (PCP) Prescriptions Cephalexin*Monohydrate* (Keflex*) 500 Mg Capsule 1 CAP PO QID, #40 CAP Prov: JOSE FU MD 06/27/25 Cephalexin*Monohydrate* (Keflex*) 500 Mg Capsule 1 CAP PO Q8H for 10 Days, #30 CAP Prov: JOSE FU MD 06/27/25 Education Educated: Patient, Other (Caregiver) Educated regarding: diagnosis, treatment Signature Scribe Signature: Attestation: JOSE FU MD Jun 27, 2025 14:30
[2025-06-27 15:10] LABS: LEUKOCYTE ESTERASE ,URINE NEGATIVE (Neg); NITRITES, URINE POSITIVE (Neg); OCCULT BLOOD,URINE NEGATIVE (Neg)
[2025-06-27 15:11] LABS: URINE HCG NEGATIVE (NEG)
[2025-06-27 15:20] LABS: UA COLLECTION TYPE STRAIGHT CATH
[2025-06-27 15:22] LABS: SQUAMOUS EPITHELIAL CELL,UR FEW /LPF (FEW)
[2025-06-27] MEDS ORDERED: sulfamethoxazole/trimethoprim DS (800/160mg) tablet PO ONE (15:35)
[2025-06-27] MEDS ORDERED: CEPH-585 PO ×2 (15:49→16:19)
[2025-06-27 16:05] VITALS: BP 113/66; PULSE 72; RESP 16; O2SAT 100
== END 2025-06-27 16:07 | disposition home or self-care (01) ==
LOC: ER 11:52
DX: N39.0 Urinary tract infection, site not specified (principal); R19.7 Diarrhea, unspecified; I10 Essential (primary) hypertension; F31.9 Bipolar disorder, unspecified; F41.9 Anxiety disorder, unspecified; F25.9 Schizoaffective disorder, unspecified; Z90.710 Acquired absence of both cervix and uterus; Z88.0 Allergy status to penicillin; Z88.8 Allergy status to other drugs, medicaments and biological substances; Z87.440 Personal history of urinary (tract) infections; Z59.00 Homelessness unspecified; Z79.899 Other long term (current) drug therapy
CPT/HCPCS: 36415; 80053; 81001; 81025; 83690; 85025; 87088; 87186; 99283; C1758; 87077